=== PATIENT | female | born 1955 | race Caucasian/White ===

== ENCOUNTER 2020-11-05 12:50 | Observation (INO) | payer MEDICARE, OTHER ==
[~2020-11-05] VITALS: Ht 152.4 cm; Wt 84.8 kg
[~2020-11-05 12:50] MED LIST: ALDACTONE100 MG PO; AMLODIPINE BESYL5 MG PO; ATORVASTATIN CA40 MG PO; CALCIUM 600 +1 EAC6 PO; CELEBREX 200MG200 MG PO; DULOXETINE HCL60 MG PO; GABAPENTIN100 MG PO; GLUCOTROL5 MG PO; HYDROCHLOROTH12.5 MG PO; K-DUR TAB 20 M20 MEQ PO; KORLYM300 MG PO; LISINOPRIL40 MG PO; MAG-OX 400 TAB400 MG PO; METFORMIN HCL500 M2 PO; METOPROLOL TART50 MG PO; NOVOLOG MI100 UNIT/1 SQ; POTASSIUM CHLO20 ME1 PO; TRULICITY0.75 MG/0. SQ; ULTRAM50 MG PO; VITAMIN B-121000 MC2 PO; ZYRTEC10 M3 PO; [UNRECOGNIZED DRUG - REMARK]
[2020-11-05 14:27] LABS: BUN/CREATININE RATIO 15 (0-10)
[2020-11-05 15:07] LABS: HEMOGLOBIN 15.7 gm/dl (12.3-15.3); RED BLOOD COUNT 5.26 M/UL (4.00-5.10); WHITE BLOOD COUNT 9.4 K/UL (4.5-11.0)
[2020-11-06 04:38] LABS: HEMOGLOBIN 13.8 gm/dl (12.3-15.3); RED BLOOD COUNT 4.59 M/UL (4.00-5.10); WHITE BLOOD COUNT 10.7 K/UL (4.5-11.0)
[2020-11-06 04:57] LABS: BUN/CREATININE RATIO 24 (0-10)
[2020-11-07 03:33] LABS: HEMOGLOBIN 12.8 gm/dl (12.3-15.3); RED BLOOD COUNT 4.35 M/UL (4.00-5.10); WHITE BLOOD COUNT 10.3 K/UL (4.5-11.0)
[2020-11-07 03:53] LABS: BUN/CREATININE RATIO 22 (0-10)
--- NOTE | 2020-11-07 04:57 | NUR ---
AT 0340 ON 11/07/20, PT WAS UNABLE TO TOLERATE OTHROSTATIC VS STANDING UP. WITH 2 PERSON ASSIST, PT WAS NOT ABLE TO TOLERABLE STANDING UP. PT C/O OF BACK PAIN AND LAID BACK DOWN TO REST IN BED. DAYSHIFT WILL BE MADE AWARE TO ALERT DAYSHIFT HOSPITALIST.
[2020-11-07] MEDS ORDERED: PROTONIX40 MG PO (14:33)
[2020-11-07] MEDS ORDERED: HUMALOG100 UNIT/1 SC (14:35)
[2020-11-07] MEDS ORDERED: LOVENOX40 MG/0.4 SQ (14:38)
[2020-11-07] MEDS ORDERED: ADULT LOW DOSE81 MG PO (14:39)
[2020-11-08] MEDS ORDERED: NORVASC5 MG PO (14:19)
[2020-11-08] MEDS ORDERED: HYDRALAZINE HCL25 MG PO ×2 (14:19→14:32)
[2020-11-08] MEDS ORDERED: LANTUS INS100 UTS/M1 SQ (14:21)
[2020-11-08] MEDS ORDERED: VITAMIN B-121000 MC2 PO (14:37)
[2020-11-08] MEDS ORDERED: ATORVASTATIN CA40 MG PO (14:37)
[2020-11-08] MEDS ORDERED: HUMALOG100 UNIT/1 SC (14:37)
[2020-11-08] MEDS ORDERED: PROTONIX40 MG PO (14:37)
== END 2020-11-08 10:33 ==
LOC: M/S 12:50 → ER1 12:50 → M/S 11-06 16:26 → ER1 11-06 17:40 → M/S 11-07 10:30 → ER1 11-07 10:30 → M/S 11-07 12:50
PROVIDERS: Physician Assistant; ADMIT Internal Medicine
DX: R53.1 Weakness (principal); R53.81 Other malaise; E11.9 Type 2 diabetes mellitus without complications; Z88.1 Allergy status to other antibiotic agents; Z20.822 Contact with and (suspected) exposure to COVID-19
CPT/HCPCS: 36415; 70450; 80053; 82550; 82553; 82962; 83735; 83874; 84439; 84443; 84484; 85025; 85027; 93005; 96365; 96372; 97110; 97110-GP-CQ; 97162; 97166; 97530; 97530-GP-CQ; 99285; G0378; J1650; J3475; U0002

== ENCOUNTER → 2021-09-03 | Outpatient (CLI) | payer OTHER ==
[~2021-09-03] MED LIST changes: +ADULT LOW DOSE81 MG PO; +HUMALOG100 UNIT/1 SC; +HYDRALAZINE HCL25 MG PO; +LANTUS INS100 UTS/M1 SQ; +LOVENOX40 MG/0.4 SQ; +NORVASC5 MG PO; +PROTONIX40 MG PO
== END ==
LOC: CT 12:22
DX: E27.8 Other specified disorders of adrenal gland (principal); N28.89 Other specified disorders of kidney and ureter
CPT/HCPCS: Q9967